=== PATIENT | female | born 1955 | race Caucasian/White ===

== ENCOUNTER → 2020-06-27 | Outpatient (CLI) | payer OTHER ==
--- NOTE | 2020-06-27 16:43 | 2DMMODE ---
[facility] [place] [address] 2 D/M-MODE ECHOCARDIOGRAM Name: GILSON WATERS Room #: REG MICHAEL MedranoAditiAshleyAditi#: [id number] Admission: 06/27/20 Attend Phys: Renetta Nicholson MD Discharge: Date of : 55 Report #: [id number] THIS REPORT FOR: cc: Renetta Nicholson MD, Constance M. MD BasilioJames turner MD [facility] ~ APPROVED REPORT Study performed: 06/27/2020 13:11:39 EXAM: Comprehensive 2D, Doppler, and color-flow Echocardiogram Patient Location: Out-Patient Room #: 2 Status: routine BSA: 1.91 HR: 72 bpm BP: 136/78 mmHg Rhythm: NSR Other Information Study Quality: Good Indications Dyspnea 2D Dimensions RVDd: 29.82 mm IVSd: 9.53 (7-11mm) LVOT Diam: 20.61 (18-24mm) LVDd: 47.92 mm PWd: 9.83 (7-11mm) Ascending Ao: 27.03 (22-36mm) LVDs: 35.34 (25-40mm) Aortic Root: 29.72 mm IVC: 17.00 mm Volumes Left Atrial Volume (Systole) Single Plane 4CH: 47.07 mL Single Plane 2CH: 50.86 mL LA ESV Index: 30.00 mL/m2 Aortic Valve AoV Peak Yomi.: 1.43 m/s AO Peak Gr.: 8.20 mmHg LVOT Max P.28 mmHg LVOT Max V: 1.03 m/s JHONNY Vmax: 2.41 cm2 [facility] [address] [place] [address] 2 D/M-MODE ECHOCARDIOGRAM Name: JTGILSON Room #: REG CL Sierra#: [id number] Admission: 06/27/20 Attend Phys: Renetta Nicholson Discharge: Date of : 55 Report #: [id number] Mitral Valve E/A Ratio: 1.0 MV Decel. Time: 170.89 ms MV E Max Yomi.: 0.86 m/s MV A Yomi.: 0.85 m/s MV PHT: 49.56 ms IVRT: 147.64 ms Pulmonary Valve PV Peak Yomi.: 0.95 m/s PV Peak Gr.: 3.63 mmHg Pulmonary Vein P Vein S: 0.43 m/s P Vein A: 0.25 m/s P Vein D: 0.37 m/s P Vein A Dur.: 110.7 msec P Vein S/D Ratio: 1.16 Left Ventricle The left ventricle is normal size. There is global hypokinesis of the left ventricle. There is normal left ventricular wall thickness. Left ventricular systolic function is mildly decreased. LVEF is 40-45%. Grade II - pseudonormal filling dynamics. Right Ventricle The right ventricle is normal size. The right ventricular systolic function is normal. Atria The left atrium size is normal. The right atrium size is normal. Aortic Valve The aortic valve is normal in structure. The Aortic valve is sclerotic. Trace to mild aortic regurgitation. There is no aortic valvular stenosis. Mitral Valve The mitral valve is normal in structure. Mild to moderate mitral regurgitation. No evidence of mitral valve stenosis. Tricuspid Valve The tricuspid valve is normal in structure. There is no tricuspid valve regurgitation noted. Pulmonic Valve The pulmonary valve is normal in structure. There is no pulmonic valvular regurgitation. [facility] [address] [place] [address] 2 D/M-MODE ECHOCARDIOGRAM Name: GILSON WATERS Room #: ANDRIA SHERIFF Antwan#: [id number] Admission: 06/27/20 Attend Phys: Renetta Nicholson Discharge: Date of : 55 Report #: [id number] Great Vessels The aortic root is normal in size. IVC is normal in size and collapses >50% with inspiration. Pericardium There is no pericardial effusion. <Conclusion> The left ventricle is normal size. LVEF is 40-45%. Grade II - pseudonormal filling dynamics. The right ventricle is normal size. The left atrium size is normal. The aortic valve is normal in structure. The Aortic valve is sclerotic. Trace to mild aortic regurgitation. Mild to moderate mitral regurgitation. There is no tricuspid valve regurgitation noted. The aortic root is normal in size. There is no pericardial effusion. <ELECTRONICALLY SIGNED> By: James Richmond MD, FACC 06/27/201642 42 42 James Richmond MD, FACC /INF
== END ==
LOC: CV 12:41
PROVIDERS: ATTEND Family Medicine
DX: I08.0 Rheumatic disorders of both mitral and aortic valves (principal); Z01.419 Encounter for gynecological examination (general) (routine) without abnormal findings

== ENCOUNTER → 2020-07-18 | Outpatient (CLI) | payer OTHER | LOC: CAT 14:26 | PROVIDERS: ATTEND Internal Medicine Cardiovascular Disease | DX: Z13.6 Encounter for screening for cardiovascular disorders (principal); I25.10 Atherosclerotic heart disease of native coronary artery without angina pectoris; E78.00 Pure hypercholesterolemia, unspecified ==

== ENCOUNTER → 2020-07-18 | Outpatient (CLI) | payer OTHER | LOC: SJCVC 13:14 | PROVIDERS: ATTEND Internal Medicine Cardiovascular Disease | DX: I42.9 Cardiomyopathy, unspecified (principal); I38 Endocarditis, valve unspecified; R53.83 Other fatigue; E78.00 Pure hypercholesterolemia, unspecified; I10 Essential (primary) hypertension; E78.5 Hyperlipidemia, unspecified; E03.9 Hypothyroidism, unspecified; M85.88 Other specified disorders of bone density and structure, other site; Z82.49 Family history of ischemic heart disease and other diseases of the circulatory system; Z79.899 Other long term (current) drug therapy ==

== ENCOUNTER → 2020-07-30 | Outpatient (CLI) | payer OTHER ==
[~2020-07-30] VITALS: Ht 162.6 cm; Wt 83.9 kg
[~2020-07-30] MED LIST: BYSTOLIC10 MG PO; CALCIUM-MAG-ZI1 EACH PO; CELEXA 20 MG TA20 MG PO; EUTHYROX50 MCG PO; OLMESARTAN-HCT1 EACH PO; OXYBUTYNIN 5 MG5 M2 PO; PROAIR HFA8.5 GM INH; SUPER THERAVIT1 EACH PO; SYMBICORT160 MCG/4. INH; VITAMIN D350 MC3 PO; VITAMIN E1000 UNIT PO; VITCB500GO PO
[2020-07-30 07:06] VITALS: BP 125/58
[2020-07-30 07:24] LABS: HEMOGLOBIN 13.4 gm/dL (12.0-15.0); MCH 27.7 pg (26.0-34.0); MCHC 32.8 g/dL (28.0-37.0); MCV 84.3 fL (80.0-100.0); RBC 4.86 mil/uL (4.20-5.00); RDW 13.9 % (10.5-14.5); WBC 9.2 thou/uL (4.0-11.0)
[2020-07-30 07:33] LABS: CALCIUM 9.6 mg/dL (8.5-10.1); POTASSIUM 3.6 mmol/L (3.5-5.1)
--- NOTE | 2020-07-31 15:36 | CATHLAB ---
[facility] Mariah Sam[place] [id number] INVASIVE PROCEDURE REPORT Name: GILSON WATERS Room #: REG MICHAEL PierreAditi#: [id number] Admission: 07/30/20 Attend Phys: James Richmond MD, Discharge: Date of : 55 Report #: [id number] THIS REPORT FOR: cc: Renetta Nicholson MD, Constance M. MD Mancuso, Gerald M. MD [facility] ~ APPROVED REPORT Study performed: 07/30/2020 07:51:23 Patient Details Patient Status: Out-Patient Room #: The patient is a 65 year-old female Event Personnel James Richmond Associate Professor Of Education, Kandy Mccarthy RN RN, Catia Temple RN RN, Candy Verduzco RTR, WINDOWS APPLICATION DEVELOPER Scrub, Kishor Silva RTR Scrub, Jazzmine Montano Monitor Procedures Performed Art Access - R femoral artery* Esteban Access - R femoral vein Right and Left Heart Cath w/or w/o Coronarie [id number] [facility] Aortogram Abdominal Peripheral Angio [id number] Hemostasis with Manual pressure Hemostasis w/ Mynx 20886 Initial Mod Sed Same Phys/QHP Gr5y [id number] 37009 Mod Sed Same Phys/QHP Ea [id number] Indication Chest pain Procedure Narrative The Right Groin^ was infiltrated with 1% Lidocaine subcutaneous anesthesia. A PINNACLE 6FR Sheath #[id number] sheath was inserted into the RFA 6F^. Coronary angiography was performed using coronary diagnostic catheters. The right coronary system was accessed and visualized with a JR4 catheter. The left coronary system was accessed and visualized with a JL4 catheter. The left ventricle was accessed and visualized with a STR PIG catheter. Left ventriculogram was performed in 30 degree projection. There was no hematoma. Pulled 7f venous sheath with manual pressure. Intraoperative Conscious Sedation Sedation start time: 853 Case end Time: 949 Fentanyl 50 mcg Versed 1 mg [facility] [place] [address] INVASIVE PROCEDURE REPORT Name: LINUSESTEFANIGILSON Room #: REG [facility]#: [id number] Admission: 07/30/20 Attend Phys: James Richmond, Discharge: Date of : 55 Report #: [id number] Fluoro Time: 5.10 minutes Dose: DAP 5266.00 cGycm2 548 mGy Contrast Type and Amount: Omnipaque 105 ml Hemodynamics The right atrial mean pressure is 9 mmHg. The right ventricular pressure is 35/4 mmHg. The pulmonary artery pressure is 32/11 mmHg with a mean of 21 mmHg. The mean pulmonary capillary wedge pressure is 13 mmHg. The aortic pressure is 143/60 mmHg with a mean of 101 mmHg. The left ventricular pressure is 149/12 mmHg with a mean of mmHg. The left ventricular end diastolic pressure is 24 mmHg. The cardiac output using thermo method is 4.30 L/min. The cardiac index using thermo method is 2.27 L/min/m2. Conclusion #1. Successful right heart catheterization with cardiac output by thermodilution. #2 normal left jugular size with LV function mildly reduced EF 45 to 50% in a global fashion. #3 abdominal aortogram is widely patent no aneurysm brisk distal flow. #4 essentially normal coronary anatomy with an inordinate amount of coronary calcium but not occlusive in a right dominant system. Recommendations and plan: Continue aggressive risk factor modification. Follow-up will be scheduled. Relative salt and fluid restriction will continue. <ELECTRONICALLY SIGNED> By: James Richmond MD, FACC 07/31/20 1536 35 35 James Richmond MD, FACC /INF
== END | disposition home or self-care (01) ==
LOC: CATH 06:23
PROVIDERS: ATTEND Internal Medicine Cardiovascular Disease
DX: R07.9 Chest pain, unspecified (principal); I42.9 Cardiomyopathy, unspecified; I10 Essential (primary) hypertension; E78.5 Hyperlipidemia, unspecified; E05.00 Thyrotoxicosis with diffuse goiter without thyrotoxic crisis or storm; M85.80 Other specified disorders of bone density and structure, unspecified site; Z98.890 Other specified postprocedural states; E66.09 Other obesity due to excess calories; Z79.899 Other long term (current) drug therapy; Z90.710 Acquired absence of both cervix and uterus; Z98.51 Tubal ligation status; Z90.49 Acquired absence of other specified parts of digestive tract

== ENCOUNTER → 2020-11-11 | Outpatient (CLI) | payer OTHER | LOC: SJCVC 14:36 | PROVIDERS: ATTEND Internal Medicine Cardiovascular Disease | DX: I42.9 Cardiomyopathy, unspecified (principal); I10 Essential (primary) hypertension; E78.5 Hyperlipidemia, unspecified; E78.00 Pure hypercholesterolemia, unspecified; E05.00 Thyrotoxicosis with diffuse goiter without thyrotoxic crisis or storm; E03.9 Hypothyroidism, unspecified; Z79.899 Other long term (current) drug therapy ==

== ENCOUNTER → 2021-11-10 | Outpatient (CLI) | payer OTHER | END | disposition home or self-care (01) | LOC: SJCVC 12:56 | PROVIDERS: ATTEND Internal Medicine Cardiovascular Disease | DX: I42.8 Other cardiomyopathies (principal); I10 Essential (primary) hypertension; E78.00 Pure hypercholesterolemia, unspecified; I38 Endocarditis, valve unspecified; E05.00 Thyrotoxicosis with diffuse goiter without thyrotoxic crisis or storm; M85.88 Other specified disorders of bone density and structure, other site; E03.9 Hypothyroidism, unspecified; D36.10 Benign neoplasm of peripheral nerves and autonomic nervous system, unspecified; E05.90 Thyrotoxicosis, unspecified without thyrotoxic crisis or storm; Z90.49 Acquired absence of other specified parts of digestive tract; Z90.710 Acquired absence of both cervix and uterus; Z79.899 Other long term (current) drug therapy; Z98.890 Other specified postprocedural states ==